=== PATIENT | male | born 1970 | race African-American/Black ===

== ENCOUNTER 2018-05-04 23:21 | Emergency (ER) | payer OTHER ==
[~2018-05-04] VITALS: Ht 170.2 cm; Wt 104.3 kg
[2018-05-04] MEDS ORDERED: COZAAR100 MG (23:29)
[2018-05-04] MEDS ORDERED: NORVASC2.5 M1 (23:30)
[2018-05-05] MEDS ORDERED: ZOFRAN ODT8 MG PO ×2 (05:58→06:01)
[2018-05-05] MEDS ORDERED: LEVSIN/SL0.125 MG SL ×2 (05:59→06:01)
[2018-05-06] MEDS ORDERED: PEPCID AC20 MG PO (19:36)
[2018-05-06] MEDS ORDERED: KETO10TA2 PO (19:36)
== END 2018-05-05 06:18 | disposition home or self-care (01) ==
LOC: ER 23:21
DX: K29.70 Gastritis, unspecified, without bleeding (principal)

== ENCOUNTER 2018-05-06 12:48 | Emergency (ER) | payer OTHER ==
[~2018-05-06] VITALS: Ht 152.4 cm; Wt 100.7 kg
[~2018-05-06 12:48] MED LIST: COZAAR100 MG; LEVSIN/SL0.125 MG SL; NORVASC2.5 M1; ZOFRAN ODT8 MG PO
[2018-05-06] MEDS ORDERED: PEPCID AC20 MG PO (19:36)
[2018-05-06] MEDS ORDERED: KETO10TA2 PO (19:36)
== END 2018-05-06 20:13 | disposition home or self-care (01) ==
LOC: ER 12:48
DX: N20.0 Calculus of kidney (principal); K29.70 Gastritis, unspecified, without bleeding